=== PATIENT | male | born 1960 | race Caucasian/White ===

== ENCOUNTER 2021-02-12 10:01 | Emergency (ER) | payer OTHER ==
[~2021-02-12] VITALS: Ht 167.6 cm; Wt 96.1 kg
[~2021-02-12 10:01] MED LIST: METF10007 PO; other
--- NOTE | 2021-02-12 10:50 | PHYS DOC ---
Past History Past Medical History: Diabetes, Hypertension Past Surgical History: Tonsillectomy, Other Additional Past Surgical Histo: knee surgery; right shoulder surgery; bilat shoulder scoped; right ankle; Additional Smoking Information: chews tobacco Alcohol Use: None Drug Use: None Adult General Chief Complaint Chief Complaint: BLURRED/DOUBLE [facility]ISION [facility] HPI Patient is a 52-year-old male with a past history of type 2 diabetes and hypertension now presenting emergency department for blurred vision and diplopia. Patient states that 4 days ago he started noting a new onset of blurred vision which he states was primarily in his generalized vision but did note perhaps a little bit worse on the right side. Patient states this is steadily progressed since that time. Yesterday morning states that he went to see his primary care physician where labs were done and a CT scan was ordered but not performed. Also states that afterwards he went to his chiropractor for sensation of vertigo where he had his neck crack. Patient states he woke up thi s morning at 4 AM and noted double vision feeling that objects in his distant vision are on top of each other. Diplopia resolves when he covers either eye. Denies any associated headache, nausea, vomiting, fever, chills, vertigo at this time. Review of Systems Review of Systems Constitutional: Denies fever or chills [] Eyes: Denies change in visual acuity, redness, or eye pain [] HENT: Denies nasal congestion or sore throat [] Respiratory: Denies cough or shortness of breath [] Cardiovascular: No additional information not addressed in HPI [] GI: Denies abdominal pain, nausea, vomiting, bloody stools or diarrhea [] : Denies dysuria or hematuria [] Musculoskeletal: Denies back pain or joint pain [] Integument: Denies rash or skin lesions [] Neurologic: Denies headache, focal weakness or sensory changes [] Endocrine: Denies polyuria or polydipsia [] All other systems were reviewed and found to be within normal limits, except as documented in this note. Allergies Allergies Allergies Coded Allergies Type Severity Reaction Last Updated Verified Penicillins Allergy Severe hives 02/12/21 No Physical Exam Physical Exam Constitutional: Well developed, well nourished, no acute distress, non-toxic appearance. [] HENT: Normocephalic, atraumatic, bilateral external ears normal, oropharynx moist, no oral exudates, nose normal. [] Eyes: PERRLA, EOMI, conjunctiva normal, no discharge. [] Neck: Normal range of motion, no tenderness, supple, no stridor. [] Cardiovascular:Heart rate regular rhythm, no murmur [] Lungs & Thorax: Bilateral breath sounds clear to auscultation [] Abdomen: Bowel sounds normal, soft, no tenderness, no masses, no pulsatile masses. [] Skin: Warm, dry, no erythema, no rash. [] Back: No tenderness, no CVA tenderness. [] Extremities: No tenderness, no cyanosis, no clubbing, ROM intact, no edema. [] Neurologic: Alert and oriented X 3, normal motor function, normal sensory function, possible right visual field deficit mild Psychologic: Affect normal, judgement normal, mood normal. [] Current Patient Data Vital Signs Vital Signs Date Time Temp Pulse Resp B/P (MAP) Pulse Ox O2 Delivery O2 Flow Rate FiO2 02/12/21 10:05 94.6 67 14 163/91 (115) 96 Room Air EKG EKG [] Radiology/Procedures Radiology/Procedures CT HEAD/BRAIN WO History: Diplopia Comparison: None. Technique: Noncontrast CT imaging was performed of the head. Findings: No intracranial hemorrhage. No mass effect. No hydrocephalus. No evidence of territorial infarction. 5 mm hypodensity left basal ganglia may represent sequela of lacunar infarct. Imaged orbits are unremarkable. Imaged paranasal sinuses and mastoid air cells are clear. No acute calvarial fracture. Impression: 1. 5 mm left basal ganglia hypodensity may represent sequela of lacunar infarct, age indeterminate. Recommend MRI for further evaluation. 2. Incompletely visualized orbits are unremarkable. ----- Exposure: One or more of the following individualized dose reduction techniques were utilized for this examination: 1. Automated exposure control 2. Adjustment of the mA and/or kV according to patient size 3. Use of iterative reconstruction technique. Electronically signed by: Juan Rodriguez MD (02/12/2021 11:04 AM) [facility] Heart Score C/O Chest Pain: No Risk Factors: Risk Factors: DM, Current or recent (<one month) smoker, HTN, HLP, family history of CAD, obesity. Risk Scores: Risk Factors: DM, Current or recent (<one month) smoker, HTN, HLP, family history of CAD, obesity. Course & Med Decision Making Course & Med Decision Making Pertinent Labs and Imaging studies reviewed. (See chart for details) 60M presenting with new onset of diplopia which is raise concern for acute intracranial abnormality or other peripheral nerve palsy including it 6th nerve palsy. At this time no findings on ocular exam raise concern for intraocular abnormality. NIH score is 0 and the patient is outside of the window for stroke alert. At this time will initiate work-up with blood pressure labs as well as a CT scan of the head. 12:30 -CT without contrast does demonstrate what appears to be a left 5 mm lacunar infarct in the basal ganglia of indeterminate age. I discussed this with Dr Jernigan who states that this is unlikely to be related in any way to the patient's vision changes and this is likely simply secondary to a 6th nerve palsy from the patient's diabetes. At this time will obtain a CT angiogram to make sure there is no other large vessel disease and if this is negative feel the patient be safely discharged with outpatient management. Dragon Disclaimer Dragon Disclaimer This electronic medical record was generated, in whole or in part, using a voice recognition dictation system. Departure Departure: Impression: Primary Impression: Sixth nerve palsy of left eye Disposition: 01 DC HOME SELF CARE/HOMELESS Condition: GOOD Referrals: DELANEY MCDANIELS MD (PCP) TAMAR BROCK MD Patient Instructions: Peripheral Nerve Problems-Brief Additional Instructions: Thank you for visiting our emergency department. You were seen for your vision problems. This appears to be due to a problem with the 6th nerve controlling your eye. The recommended treatment for this is to place an eye patch or your eye alternating the eye every day. Please return the emergency department if you have any sudden worsening of your symptoms, numbness or weakness in hands or feet or fever greater than 101 F EMERGENCY DEPARTMENT GENERAL DISCHARGE INSTRUCTIONS Thank you for coming to [facility] Emergency Department (ED) today and trusting us with you care. We trust that you had a positive experience in our Emergency Department. If you wish to speak to the department management, you may call the Director at [phone]. YOUR FOLLOW UP INSTRUCTIONS ARE FOLLOWS: 1. Do you have a private Doctor? If you do not have a private doctor, please ask for a resource list of physicians or clinics that may be able to assist you with follow up care. 2. The Emergency Physicain has interpreted your x-rays. The X-Ray specialist will also review them. If there is a change in the findings, you will be notified in 48 hours when at all possible. 3. A lab test or culture has been done, your results will be reviewed and you will be notified if you need a change in treatment. ADDITIONAL INSTRUCTIONS AND INFORMATION: 1. Your care today has been supervised by a physician who is specially trained in emergency care. Many problems require more than one evaluation for a complete diagnosis and treatment. We recommend that you schedule your follow up appointment as recommended to ensure complete treatment of you illness or injury. If you are unable to obtain follow up care and continue to have a problem, or if your condition worsens, we recommend that you return to the ED. 2. We are not able to safely determine your condition over the phone nor are we able to give sound medical advice over the phone. For these safety reasons, if you call for medical advice we will ask you to come to the ED for further evaluation. 3. If you have any questions regarding these discharge instructions please call the ED at [phone]. SAFETY INFORMATION: In the interest of safety, wellness, and injury prevention; we encourage you to wear your sealbelt, if you smoke; quite smoking, and we encourage family to use a protective helmet for bicycling and other sporting events that present an increased risk for head injury. IF YOUR SYMPTOMS WORSEN OR NEW SYMPTOMS DEVELOP, OR YOU HAVE CONCERNS ABOUT YOUR CONDITION; OR IF YOUR CONDITION WORSENS WHILE YOU ARE WAITING FOR YOUR FOLLOW UP BRIAN OINTMENT; EITHER CONTACT YOUR PRIMARY CARE DOCTOR, THE PHYSICIAN WHOSE NAME AND NUMBER YOU WERE GIVEN, OR RETURN TO THE ED IMMEDIATELY. EAN NÚÑEZ MD Feb 12, 2021 10:50
--- NOTE | 2021-02-12 11:06 | RAD ---
CT HEAD/BRAIN WO History: Diplopia Comparison: None. Technique: Noncontrast CT imaging was performed of the head. Findings: No intracranial hemorrhage. No mass effect. No hydrocephalus. No evidence of territorial infarction. 5 mm hypodensity left basal ganglia may represent sequela of lacunar infarct. Imaged orbits are unremarkable. Imaged paranasal sinuses and mastoid air cells are clear. No acute ca lvarial fracture. Impression: 1. 5 mm left basal ganglia hypodensity may represent sequela of lacunar infarct, age indeterminate. Recommend MRI for further evaluation. 2. Incompletely visualized orbits are unremarkable. ----- Exposure: One or more of the following individualized dose reduction techniques were utilized for thi s examination: 1. Automated exposure control 2. Adjustment of the mA and/or kV according to patient size 3. Use of iterative reconstruction technique. Electronically signed by: Juan Rodriguez MD (02/12/2021 11:04 AM) [facility]
[2021-02-12 11:21] LABS: BASO % 0 % (0-3); EOS # 0.1 x10^3/uL (0.0-0.7); EOS % 1 % (0-3); HEMATOCRIT 40.7 % (39.0-53.0); HEMOGLOBIN 13.7 g/dL (13.0-17.5); LYMPH # 1.9 x10^3/uL (1.0-4.8); LYMPH % 22 % (24-48); MEAN CORPUSCULAR HEMOGLOBIN 33 pg (25-35); MEAN CORPUSCULAR HGB CONC 34 g/dL (31-37); MEAN CORPUSCULAR VOLUME 97 fL (79-100); MONO # 0.7 x10^3/uL (0.0-1.1); MONO % 8 % (0-9); NEUT % 69 % (31-73); PLATELET COUNT 356 x10^3/uL (140-400); RED BLOOD COUNT 4.21 x10^6/uL (4.30-5.70); WHITE BLOOD COUNT 8.7 x10^3/uL (4.0-11.0)
[2021-02-12] MEDS ORDERED: ASPIRIN ENTERIC COATED 325 MG TABLET.DR. PO ONE (11:45)
[2021-02-12 11:51] LABS: CALCIUM 9.7 mg/dL (8.5-10.1); CREATININE 1.1 mg/dL (0.7-1.3); GFR 68.8; POTASSIUM 4.5 mmol/L (3.5-5.1)
[2021-02-12 11:55] LABS: ALBUMIN 3.9 g/dL (3.4-5.0); TOTAL BILIRUBIN 0.4 mg/dL (0.2-1.0); TOTAL PROTEIN 7.7 g/dL (6.4-8.2)
[2021-02-12] MEDS ORDERED: IOHEXOL 350 MG/ML 100 ML VIAL. IV ONE (12:00)
[2021-02-12 12:17] LABS: BARBITURATES NEG (NEG); BENZODIAZEPINES NEG (NEG); CANNABINOIDS NEG (NEG); COCAINE NEG (NEG); METHADONE NEG (NEG); OPIATES NEG (NEG); PHENCYCLIDINE NEG (NEG)
[2021-02-12 12:22] LABS: AMPHETAMINE/METHAMPHETAMINE NEG (NEG)
[2021-02-12 12:49] LABS: BACTERIA,URINE 0 /HPF (0-FEW); BILIRUBIN,URINE NEG (NEG); CLARITY,URINE CLEAR; COLOR,URINE STRAW; GLUCOSE,URINE NEG (NEG); NITRITE,URINE NEG (NEG); RBC,URINE 0 /HPF (0-2); SQUAMOUS EPITHELIAL CELL,UR OCC /LPF; UROBILINOGEN,URINE 0.2 mg/dL (0.2 mg/dL); WBC,URINE OCC /HPF (0-4)
--- NOTE | 2021-02-12 12:51 | RAD ---
EXAM: CTA HEAD AND NECK W/WO CONTRAST DATE: 02/12/2021 12:19 PM INDICATION: Reason: vision changes 100cc omni 350 / Spl. Instructions: / History: TECHNIQUE: CTA angiogram of the head and neck was obtained after IV bolus administration of 100 cc of Omnipaque 350. The images were sent to workstation and multiplanar reconstructions were obtained. M ultiplanar reconstruction images to include MIP and 3-D reconstruction images are submitted. One or more of the following dose reduction techniques were utilized: Automated exposure control (AEC ), Adjustment of mA and/or kV according to patient size, Use of iterative reconstruction technique garcia ch as ASiR, CT scan done according to ALARA and image gently/image wisely COMPARISON: Noncontrast CT head done earlier. FINDINGS: CTA Head: Atherosclerosis of the cavernous paraclinoid ICAs with less than 25 percent stenosis on the right and 25-50 percent stenosis on the left. The anterior and middle cerebral arteries are patent and normal caliber. The distal vertebral arteries, basilar artery, and posterior cerebral arteries are patent an d normal caliber. No aneurysm or arteriovenous malformation is seen. CTA Neck: Right carotid: The right common carotid artery is patent and normal caliber. The carotid bifurcation is normal. No stenosis of the right internal carotid artery per NASCET criteria. The right external c arotid artery is patent. Left carotid: The left common carotid artery is patent and normal caliber. The carotid bifurcation is normal. No stenosis of the left internal carotid artery per NASCET criteria. The left external carot id artery is patent. Right vertebral: Mild atherosclerosis at the origin of the right vertebral artery, which is otherwise patent and normal caliber. Left vertebral: Mild atherosclerosis at the origin of the left vertebral artery, which is otherwise p atent and normal caliber.. Mild atherosclerosis of the aortic arch. The origins of the brachiocephalic and subclavian arteries a re normal. No cervical lymphadenopathy. The thyroid gland is normal. The parotid and submandibular glands are no rmal. The visualized aerodigestive tract is unremarkable. The cervical spine is normal. The visualized portions of the lungs are clear. IMPRESSION: 1. No intracranial large vessel occlusion. 2. No stenosis of the cervical carotid or vertebral arteries. 3. Atherosclerosis of the intracranial ICAs. No severe stenosis. PQRS Compliance Statement - Stenosis calculations for CT, MR and conventional angiography are based u sravanthi measurement of the distal ICA diameter in accordance with the NASCET methodology. Electronically signed by: Jaun Holt MD (02/12/2021 12:49 PM) [id number]
[2021-02-12 13:35] VITALS: BP 150/94
[2021-02-12 14:09] LABS: SEDIMENTATION RATE 36 (0-15)
--- NOTE | 2021-02-13 08:03 | EKG ---
[address] [address] Test Date: 2021-02-12 Test Time: 10:50:00 Pat Name: JAROCHO CHEEK Department: Room: Gender: M Product Management Intern: : [id number] Requested By: EAN NÚÑEZ Order Number: [id number] Reading MD: Measurements Intervals [place] Rate: P: [place]: QRS: QRSD: T: QT: QTc: Interpretive Statements
== END 2021-02-12 13:45 | disposition home or self-care (01) ==
LOC: ER 10:01
DX: H49.22 Sixth [abducent] nerve palsy, left eye (principal); E11.9 Type 2 diabetes mellitus without complications; I10 Essential (primary) hypertension; F17.220 Nicotine dependence, chewing tobacco, uncomplicated; Z88.0 Allergy status to penicillin
CPT/HCPCS: 36415; 70450; 70496; 70498; 80053; 80307; 81001; 83605; 84484; 85025; 85610; 85651; 85730; 93005; 99285; Q9967